=== PATIENT | male | born 1990 | race Caucasian/White ===

== ENCOUNTER 2020-08-07 12:44 | Emergency (ER) | payer OTHER ==
[~2020-08-07] VITALS: Ht 187 cm; Wt 83.0 kg
[2020-08-07 12:50] VITALS: BP 134/53
[2020-08-07] MEDS ORDERED: KETOROLAC 60 MG/2 ML VIAL IM ONE (13:30)
[2020-08-07] MEDS ORDERED: ORPHENADRINE 60 MG/2 ML (NORFLEX) AMP (ED ONLY) IM ONE (13:30)
--- NOTE | 2020-08-07 13:36 | Diagnostic Imaging Report ---
Indication: Sharp back pain AP and lateral views of lumbar spine are obtained. There is no previous study for comparison. Lumbar spinal curvature and alignment are unremarkable. There is narrowing of the L4-L5 and L5-S1 disc spaces with associated endplate spurring. No acute fracture or subluxation is seen. Note is made of left L5-S1 pseudarthrosis. IMPRESSION: Degenerative L4-L5 and L5-S1 disc space narrowing with associated endplate spurring. Note is made of left L5-S1 pseudarthrosis. Dictated by: Dictated on workstation # [id number]
--- NOTE | 2020-08-07 13:38 | ED General ---
General Chief Complaint: Back Problems Stated Complaint: LWR BACK PAIN Nursing Triage Note: LOW BACK PAIN, HX OF BACK PAIN Nursing Sepsis Screen: No Definite Risk Source of Information: Patient History of Present Illness Date Seen by Provider: August 07, 2020 Time Seen by Provider: 13:00 Initial Comments Patient is a 30-year-old male who presents with acute onset back pain starting 2 hours prior to ED arrival. Pain is sharp located in the low lumbar region. Is rated moderate to severe and is worse with palpation and trunk rotation. It is nonradiating and continuous. It is not relieved with position change or rest. No medications or therapies taken prior to arrival. Is not associate with motor weakness loss of sensation, saddle anesthesia, or bowel or bladder incontinence. No prior history of back injury or chronic back pain. No other acute symptoms or complaints. Timing/Duration: 1-3 Hours Severity: Moderate Modifying Factors: improves with Other Associated Systoms: Other Allergies and Home Medications Allergies Coded Allergies: No Known Drug Allergies (Unverified , 08/07/20) Patient Home Medication List Home Medication List Reviewed: Yes Review of Systems Review of Systems Constitutional: see HPI EENTM: see HPI Respiratory: see HPI Cardiovascular: see HPI Gastrointestinal: see HPI Genitourinary: see HPI Musculoskeletal: see HPI Skin: see HPI Psychiatric/Neurological: See HPI Hematologic/Lymphatic: See HPI Immunological/Allergic: see HPI All Other Systems Reviewed Negative Unless Noted: Yes Past [id number] Hx Past Med/Social Hx: Reviewed Nursing Past Med/Soc Hx Patient Social History Alcohol Use: Denies Use Smoking Status: Never a Smoker Recent Infectious Disease Expo: No Recent Hopitalizations: No Seasonal Allergies Seasonal Allergies: No Past Medical History Surgeries: Yes Orthopedic Respiratory: No Cardiac: No Neurological: No Genitourinary: No Gastrointestinal: No Musculoskeletal: No Endocrine: No HEENT: No Cancer: No Psychosocial: No Integumentary: No Blood Disorders: No Physical Exam Vital Signs Vital Signs - First Documented 08/07/20 12:50 Temp 36.7 Pulse 57 Resp 18 B/P (MAP) 134/53 (80) Pulse Ox 98 O2 Delivery Room Air Capillary Refill : Less Than 3 Seconds Height, Weight, BMI Height: '" Weight: lbs. oz. kg; 23.00 BMI Method: General Appearance: No Apparent Distress Eyes: Bilateral Eye Normal Inspection, Bilateral Eye PERRL HEENT: PERRL/EOMI Back: No CVA Tenderness, Other (Diffuse lower lumbar back pain/spasm.) Neurologic/Psychiatric: Alert, No Motor/Sensory Deficits Progress/Results/Core Measures Suspected Sepsis Recent Fever Within 48 Hours: No Infection Criteria Present: None New/Unexplained Altered Menta: No Sepsis Screen: No Definite Risk SIRS Temperature: Pulse: 57 Respiratory Rate: 18 Blood Pressure 134 /53 Mean: 80 Results/Orders My Orders Orders - JOE PARTIDA DO Lumbar Spine 2 Or 3 View (08/07/20 12:55) Ketorolac Injection (Toradol Injection) (08/07/20 13:30) Orphenadrine Inj (Ed Only) (Norflex Inje (08/07/20 13:30) Medications Given in ED Current Medications Medications Dose Ordered Sig/Dino Route Start Time Stop Time Status Last Admin Dose Admin Ketorolac Tromethamine 60 mg ONCE ONCE IM 08/07/20 13:30 08/07/20 13:31 DC 08/07/20 13:23 60 MG Orphenadrine Citrate 60 mg ONCE ONCE IM 08/07/20 13:30 08/07/20 13:31 DC 08/07/20 13:23 60 MG Vital Signs/I&O 08/07/20 12:50 Temp 36.7 Pulse 57 Resp 18 B/P (MAP) 134/53 (80) Pulse Ox 98 O2 Delivery Room Air Capillary Refill : Less Than 3 Seconds Blood Pressure Mean: 80 Departure Communication (Admissions) X-ray lumbar series: Advanced degenerative changes at L5-S1 L4-L5. Acute back pain no neurologic deficits. X-ray findings of degenerative arthritis. Will treat supportively with PCP follow-up. Return precautions reviewed. Impression Primary Impression: Acute lumbar back pain Disposition: 01 HOME, SELF-CARE Condition: Stable Departure-Patient Inst. Decision time for Depature: 13:45 Referrals: ROBINA OLIVERA-EQUIPMENT INSPECTOR (PCP) Primary Care Physician NO,LOCAL PHYSICIAN (Family) Primary Care Physician Patient Instructions: Low Back Pain in Adults Add. Discharge Instructions: Please take newly prescribed medications as directed. Avoid strenuous physical activity and heavy lifting. Follow-up with your PCP in 3 to 5 days for reevaluation. Return to the ED if new or worsening symptoms. All discharge instructions reviewed with patient and/or family. Voiced understanding. Scripts Cyclobenzaprine HCl (Cyclobenzaprine HCl) 10 Mg Tablet 10 MG PO TID, #30 TAB Prov: JOE PARTIDA DO 08/07/20 Hydrocodone/Acetaminophen (Hydrocodone-Acetamin 5-325 mg) 1 Each Tablet 1 TAB PO Q4H PRN for PAIN-MODERATE (5-7), #10 TAB Prov: JOE PARTIDA DO 08/07/20 JOE PARTIDA DO August 07, 2020 13:38
[2020-08-07] MEDS ORDERED: CYCL10TA9 PO (13:47)
[2020-08-07] MEDS ORDERED: ACHD5005 PO (13:47)
== END 2020-08-07 13:49 | disposition home or self-care (01) ==
LOC: ER FS 12:48
DX: M54.5 Low back pain (principal)
CPT/HCPCS: 72100